=== PATIENT | female | born 2000 | race Caucasian/White ===

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

== ENCOUNTER → 2020-03-24 | Outpatient (REF) | payer OTHER ==
[2020-03-24 18:07] LABS: HEMATOCRIT 41.4 % (36.0-47.0); HEMOGLOBIN 13.6 g/dl (12.0-15.5); MEAN CORPUSCULAR HEMOGLOBIN 29.4 pg (27.0-33.0); MEAN CORPUSCULAR HGB CONC 32.9 g/dl (32.0-36.5); MEAN CORPUSCULAR VOLUME 89.4 fl (80.0-96.0); PLATELET COUNT, AUTOMATED 309 10^3/uL (150-450); RED BLOOD COUNT 4.63 10^6/uL (4.00-5.40); WHITE BLOOD COUNT 6.5 10^3/uL (4.0-10.0)
== END ==
LOC: M PLALAB 15:04
PROVIDERS: ATTEND Advanced Practice Midwife
DX: N92.0 Excessive and frequent menstruation with regular cycle (principal)

== ENCOUNTER → 2020-04-11 | Outpatient (CLI) | payer OTHER ==
--- NOTE | 2020-04-11 16:13 | REP ---
INDICATION: MENORRHAGIA,PELVIC PAIN COMPARISON: None. TECHNIQUE: Transabdominal pelvic ultrasound followed by transvaginal examination for better evaluation of the endometrium and adnexa with color Doppler evaluation of the ovaries. FINDINGS: Bladder is unremarkable and measures 10.9 x 6.3 x 9.3 cm. Normal anteverted uterus measures 8.1 x 3.4 x 4.1 cm. The endometrial complex measures 10 mm thickness. No discrete uterine or endometrial abnormalities are appreciated. 12 x 10 x 9 mm cyst in the right hemipelvis adjacent to the uterine fundus likely adnexal/paraovarian cyst. Bilateral ovaries are normal in vascularity without evidence for torsion. Right ovary measures 4.1 x 2.1 x 2.1 cm with 2.2 cm dominant follicle; R I = 0.65. Left ovary measures 2.9 x 1.6 x 2.9 cm; R I = 0.50. Small amount of pelvic free fluid is nonspecific and likely physiologic. IMPRESSION: Relatively normal examination. Right dominant follicle and suspected right para ovarian cyst. <Electronically signed by Chago Rivera > 04/11/20 [id number]
== END ==
LOC: M WHC 14:56
PROVIDERS: ATTEND Advanced Practice Midwife
DX: N92.0 Excessive and frequent menstruation with regular cycle (principal); N83.291 Other ovarian cyst, right side

== ENCOUNTER → 2020-08-04 | Outpatient (CLI) | payer OTHER ==
[~2020-08-04] MED LIST changes: -GASTROGRAFIN SOLUTION 30ML (Q9963) As Ordered ONE; -ISOVUE-370 76% 100ML VIAL (Q9967) As Ordered ONE; +MELA10CA PO; +MISO200T56; +PRAZ1CAP PO; +ZOLO100T PO
== END ==
LOC: M LABSMTC 10:36
PROVIDERS: ATTEND Anesthesiology
DX: Z01.812 Encounter for preprocedural laboratory examination (principal); Z20.822 Contact with and (suspected) exposure to COVID-19

== ENCOUNTER 2020-08-09 11:58 | Day surgery (SDC) | payer OTHER ==
[~2020-08-09] VITALS: Ht 157.5 cm; Wt 79.8 kg
[~2020-08-09 11:58] MED LIST changes: +LR 1,000 ML IV ONE
[2020-08-09 12:41] LABS: HEMATOCRIT 41.9 % (36.0-47.0); HEMOGLOBIN 13.8 g/dl (12.0-15.5); MEAN CORPUSCULAR HEMOGLOBIN 29.9 pg (27.0-33.0); MEAN CORPUSCULAR HGB CONC 32.9 g/dl (32.0-36.5); MEAN CORPUSCULAR VOLUME 90.7 fl (80.0-96.0); PLATELET COUNT, AUTOMATED 302 10^3/uL (150-450); RED BLOOD COUNT 4.62 10^6/uL (4.00-5.40); WHITE BLOOD COUNT 9.1 10^3/uL (4.0-10.0)
[2020-08-09] MEDS ORDERED: BUPIVACAINE HCL 0.25% 30ML VIAL As Ordered ONE (13:10)
[2020-08-09] MEDS ORDERED: dexameTHASONE 4 MG/ML 1ML VIAL (J1100 PER 1MG) As Ordered ONE (13:54)
[2020-08-09] MEDS ORDERED: ROCURONIUM BROMIDE 50 MG/5 ML VIAL As Ordered ONE (13:54)
[2020-08-09] MEDS ORDERED: propofoL 200 MG/20 ML VIAL As Ordered ONE (13:54)
[2020-08-09] MEDS ORDERED: SUGAMMADEX SODIUM 500 MG/5 ML VIAL (BRIDION) As Ordered ONE (13:54)
[2020-08-09] MEDS ORDERED: fentaNYL 250 MCG/5 ML INJECTION (J3010) As Ordered ONE (13:54)
[2020-08-09] MEDS ORDERED: ONDANSETRON 4MG/2ML VIAL As Ordered ONE (13:54)
[2020-08-09] MEDS ORDERED: LIDOCAINE 2% 100MG/5ML SDV (FOR ANES.) As Ordered ONE (13:54)
[2020-08-09] MEDS ORDERED: MIDAZOLAM INJ 2MG/2ML VIAL (J2250 PER 1MG) As Ordered ONE (13:55)
[2020-08-09] MEDS ORDERED: KETOROLAC 60MG 2ML VIAL As Ordered ONE (14:03)
[2020-08-09] MEDS ORDERED: ePHEDrine SULFATE 25 MG/5 ML(5MG/ML) SYRINGE As Ordered ONE (15:13)
[2020-08-09] MEDS ORDERED: ACETAMINOPHEN 1000MG 100ML IV BTL (OFIRMEV) (J0131 PER 10MG) As Ordered ONE (15:17)
[2020-08-09] MEDS ORDERED: HYDROmorphone HCL 2 MG/ML 1ML VIAL (J1170) As Ordered ONE (15:22)
[2020-08-09] MEDS ORDERED: fentaNYL 100 MCG/2 ML INJECTION (J3010) IV PRN (16:05)
[2020-08-09] MEDS ORDERED: MEPERIDINE INJ 25 MG/ML VIAL (J2175) IV PRN (16:05)
[2020-08-09] MEDS ORDERED: LR 1,000 ML IV SCH ×2 (16:05→16:10)
[2020-08-09] MEDS ORDERED: METOCLOPRAMIDE INJ 10MG/2ML VIAL (J2765 PER 1) IV PRN (16:05)
[2020-08-09] MEDS ORDERED: ONDANSETRON 4MG/2ML VIAL IV PRN (16:05)
[2020-08-09] MEDS ORDERED: oxyCODONE 5MG TAB PO PRN (16:05)
[2020-08-09] MEDS ORDERED: PERCOCET 5MG/325MG TAB PO PRN (16:10)
--- NOTE | 2020-08-09 16:33 | ROOPDOC ---
[facility] Report Of Operation Report of Operation DATE OF PROCEDURE: 08/09/20 PREPROCEDURE DIAGNOSES: pelvic pain, dysmenorrhea. POSTPROCEDURE DIAGNOSES: same. PROCEDURE PERFORMED: Operative laparoscopy, excision of right paratubal cyst. SURGEON: Kareen Rowe MD ANESTHESIA: GETA. ESTIMATED BLOOD LOSS: Approximately 10 mL. COMPLICATIONS: none. FINDINGS: 2 cm right paratubal cyst near the fimbriated portion of the fallopian tube. Normal uterus ovaries and left fallopian tube. No evidence of endometriosis SPECIMENS REMOVED: Right paratubal cyst PROCEDURE NOTE: The patient was taken to the operating room where general endotracheal anesthesia was induced. She was prepped and draped in a sterile fashion in the dorsal lithotomy position. A Rios catheter was placed. A Ocutec tenaculum was used as a uterine manipulator. A periumbilical incision was made with a scalpel. A Veress needle was placed through this incisional tenting up on the skin of the abdomen. An intra-abdominal location of the Veress needle was assessed with the use of a saline filled syringe. A pneumoperitoneum was created. A Veress needle was removed. A 5 mm trocar using LookAcrossort was inserted through this incision. Two 5 mm suprapubic ports were placed under direct visualization without difficulty. The right fallopian tube was elevated with a grasping instrument. A harmonic scalpel was used to coagulate in size attachments of the paratubal cyst to the fallopian tube. The cyst was removed in its entirety. The fallopian tube appeared normal at the end of the procedure. The cyst was decompressed and removed through the suprapubic port. The pelvis was thoroughly surveyed. There was no evidence of endometriosis at all. The pneumoperitoneum was released. All instruments were removed. Skin was closed with 4-0 Monocryl subcuticular sutures. Sponge instrument and needle counts were correct. Patient went to the recovery room in stable condition. KAREEN ROWE MD Aug 09, 2020 16:33
[2020-08-09] MEDS ORDERED: OXYC1TAB23 PO (17:17)
[2020-08-09] MEDS ORDERED: IBUP-1022 PO (17:18)
[2020-08-09 17:20] VITALS: BP 131/67
== END 2020-08-09 17:25 | disposition home or self-care (01) ==
LOC: M SDC 11:58
PROVIDERS: ATTEND Specialist
DX: N83.8 Other noninflammatory disorders of ovary, fallopian tube and broad ligament (principal); N94.6 Dysmenorrhea, unspecified; F41.9 Anxiety disorder, unspecified; F32.9 Major depressive disorder, single episode, unspecified; G43.909 Migraine, unspecified, not intractable, without status migrainosus; F43.10 Post-traumatic stress disorder, unspecified; R56.9 Unspecified convulsions; F17.220 Nicotine dependence, chewing tobacco, uncomplicated; Z79.899 Other long term (current) drug therapy; E73.9 Lactose intolerance, unspecified
CPT/HCPCS: 36415; 58662; 81025; 85027; 88305; J0131; J1100; J1170; J1885; J2250; J2405; J3010

== ENCOUNTER → 2021-10-24 | Outpatient (CLI) | payer OTHER ==
[~2021-10-24] MED LIST changes: +IBUP-1022 PO; -LR 1,000 ML IV ONE; +OXYC1TAB23 PO
[2021-10-24 19:00] LABS: ALBUMIN 3.7 GM/DL (3.2-5.2); ALT/SGPT 18 U/L (12-78); BILIRUBIN,TOTAL 0.3 MG/DL (0.2-1.0); BLOOD UREA NITROGEN 10 MG/DL (7-18); CALCIUM LEVEL 8.9 MG/DL (8.5-10.1); CARBON DIOXIDE LEVEL 28 MEQ/L (21-32); CHLORIDE LEVEL 105 MEQ/L (98-107); CREATININE FOR GFR 0.74 MG/DL (0.55-1.30); GLOMERULAR FILTRATION RATE > 60.0 (>60); GLUCOSE, FASTING 73 MG/DL (70-100); POTASSIUM SERUM 4.3 MEQ/L (3.5-5.1); SODIUM LEVEL 136 MEQ/L (136-145); TOTAL PROTEIN 7.5 GM/DL (6.4-8.2)
== END ==
LOC: M PLAIMG 15:53
PROVIDERS: ATTEND Nurse Practitioner Adult Health
DX: M79.671 Pain in right foot (principal); F32.9 Major depressive disorder, single episode, unspecified

== ENCOUNTER 2021-12-14 11:18 | Emergency (ER) | payer OTHER ==
[~2021-12-14] VITALS: Ht 154.9 cm; Wt 73.3 kg
[2021-12-14] MEDS ORDERED: OMEP40CA5 (11:36)
[2021-12-14] MEDS ORDERED: BUPR150T12 (11:36)
[2021-12-14 12:46] LABS: BASO % 0.4 % (0.0-1.0); EOS # 0.3 10^3/uL (0.0-0.5); EOS % 4.7 % (0.0-3.0); HEMATOCRIT 42.1 % (36.0-47.0); HEMOGLOBIN 13.9 g/dl (12.0-15.5); LYMPH # 1.8 10^3/uL (1.5-5.0); LYMPH % 26.3 % (24.0-44.0); MEAN CORPUSCULAR HEMOGLOBIN 30.3 pg (27.0-33.0); MEAN CORPUSCULAR VOLUME 91.9 fl (80.0-96.0); MONO # 0.5 10^3/uL (0.0-0.8); MONO % 6.6 % (2.0-8.0); NEUTROPHILS # 4.2 10^3/uL (1.5-8.5); NEUTROPHILS % 61.7 % (36.0-66.0); PLATELET COUNT, AUTOMATED 235 10^3/uL (150-450); RED BLOOD COUNT 4.58 10^6/uL (4.00-5.40); WHITE BLOOD COUNT 6.8 10^3/uL (4.0-10.0)
[2021-12-14 13:32] LABS: ACETONE/KETONE 1.57 MG/DL (<2.81); ALBUMIN 3.7 GM/DL (3.2-5.2); ALT/SGPT 22 U/L (12-78); BILIRUBIN,DIRECT < 0.1 MG/DL (0.0-0.2); BILIRUBIN,TOTAL 0.2 MG/DL (0.2-1.0); BLOOD UREA NITROGEN 13 MG/DL (7-18); CALCIUM LEVEL 8.7 MG/DL (8.5-10.1); CARBON DIOXIDE LEVEL 26 MEQ/L (21-32); CHLORIDE LEVEL 106 MEQ/L (98-107); CREATININE FOR GFR 0.69 MG/DL (0.55-1.30); GLOMERULAR FILTRATION RATE > 60.0 (>60); GLUCOSE, FASTING 87 MG/DL (70-100); LIPASE 109 U/L (73-393); POTASSIUM SERUM 3.9 MEQ/L (3.5-5.1); SODIUM LEVEL 140 MEQ/L (136-145); TOTAL PROTEIN 7.3 GM/DL (6.4-8.2)
[2021-12-14 13:40] LABS: OSMOLALITY SERUM 284 MOSM/KG (275-295)
[2021-12-14] MEDS ORDERED: NS 1,000 ML IV SCH (16:30)
[2021-12-14 16:38] LABS: HEMOGLOBIN A1c 4.8 %
[2021-12-14 16:58] LABS: FREE T4 2.58 NG/DL (0.76-1.46); THYROID STIMULATING HORMONE 0.861 uIU/ML (0.358-3.740)
[2021-12-14] MEDS ORDERED: ISOVUE-370 76% 100ML VIAL As Ordered ONE (17:29)
[2021-12-14] MEDS ORDERED: DEXTROSE 50% 50 ML SYRINGE IV STA (17:58)
[2021-12-14 19:13] VITALS: BP 119/77
== END 2021-12-14 19:15 | disposition home or self-care (01) ==
LOC: M ED 11:18
DX: E16.2 Hypoglycemia, unspecified (principal); K76.89 Other specified diseases of liver; R91.8 Other nonspecific abnormal finding of lung field; F32.A Depression, unspecified; F41.9 Anxiety disorder, unspecified; Z79.899 Other long term (current) drug therapy

== ENCOUNTER → 2023-05-14 | Outpatient (REF) | payer OTHER ==
[~2023-05-14] MED LIST changes: +BUPR150T12; -MISO200T56; +MISO200T83; +OMEP40CA5
[2023-05-14 18:24] LABS: THYROID STIMULATING HORMONE 0.626 uIU/ML (0.55-4.78)
[2023-05-14 18:26] LABS: ALKALINE PHOSPHATASE 67 U/L (46-116); ALT/SGPT 24 U/L (7.0-40); AST/SGOT 20 U/L (<34); BILIRUBIN,TOTAL 0.3 MG/DL (0.3-1.2); BLOOD UREA NITROGEN 14 MG/DL (9-23); CALCIUM LEVEL 8.6 MG/DL (8.5-10.1); CARBON DIOXIDE LEVEL 28 MMOL/L (20-31); CHLORIDE LEVEL 104 MMOL/L (98-107); CREATININE FOR GFR 0.66 MG/DL (0.55-1.30); GLOMERULAR FILTRATION RATE > 60.0 (>60); GLUCOSE, FASTING 90 MG/DL (60-100); POTASSIUM SERUM 3.8 MMOL/L (3.5-5.1); SODIUM LEVEL 138 MMOL/L (136-145); TOTAL PROTEIN 7.2 G/DL (5.7-8.2)
== END ==
LOC: M SFHCPLAZ 17:15
PROVIDERS: ATTEND Nurse Practitioner Adult Health
DX: F32.9 Major depressive disorder, single episode, unspecified (principal); K76.9 Liver disease, unspecified

== ENCOUNTER → 2023-06-06 | Outpatient (CLI) | payer OTHER ==
[~2023-06-06] MED LIST changes: +PROHANCE 279.3MG/ML 15ML VIAL As Ordered ONE
== END ==
LOC: M RAD 14:43
PROVIDERS: ATTEND Nurse Practitioner Adult Health
DX: K76.9 Liver disease, unspecified (principal); N28.1 Cyst of kidney, acquired
CPT/HCPCS: 74183; A9576

== ENCOUNTER 2023-07-25 10:25 | Day surgery (SDC) | payer OTHER ==
[~2023-07-25] VITALS: Ht 157.5 cm; Wt 83.9 kg
[~2023-07-25 10:25] MED LIST changes: -BUPR150T12; +BUPR150T12 PO; +CETI-24 PO; +LIDOCAINE 2% 100MG/5ML SDV (FOR ANES.) As Ordered ONE; +MIDAZOLAM INJ 2MG/2ML VIAL As Ordered ONE; +MULTTAB61 PO; -OMEP40CA5; +OMEP40CA5 PO; -PROHANCE 279.3MG/ML 15ML VIAL As Ordered ONE; +ROCURONIUM BROMIDE 50MG/5ML VIAL As Ordered ONE; +propofoL 200 MG/20 ML VIAL As Ordered ONE
[2023-07-25] MEDS ORDERED: KETOROLAC 60MG 2ML VIAL As Ordered ONE (11:54)
[2023-07-25] MEDS ORDERED: fentaNYL 100 MCG/2 ML INJECTION As Ordered ONE (11:59)
[2023-07-25] MEDS: AMPICILLIN SOD/SULBACTAM SOD 3 GM in D5W MINI-BAG PLUS 100 ML IV ONE (12:48)
[2023-07-25] MEDS: LIDOCAINE 2% W/ EPINEPHRINE 1.7 ML DENTAL INJ As Ordered ONE (12:51)
[2023-07-25] MEDS ORDERED: ONDANSETRON 4MG 2ML VIAL As Ordered ONE (12:58)
[2023-07-25] MEDS ORDERED: ACETAMINOPHEN 1000MG 100ML IV BAG As Ordered ONE (12:58)
[2023-07-25] MEDS ORDERED: SUGAMMADEX SODIUM 500 MG/5 ML VIAL (BRIDION) As Ordered ONE (13:00)
[2023-07-25] MEDS ORDERED: LR 1,000 ML IV SCH (13:50)
[2023-07-25] MEDS ORDERED: fentaNYL 100 MCG/2 ML INJECTION IV PRN (13:50)
[2023-07-25] MEDS ORDERED: ONDANSETRON 4MG 2ML VIAL IV PRN (13:50)
[2023-07-25] MEDS: oxyCODONE 5MG TAB PO PRN (14:08)
[2023-07-25 14:35] VITALS: BP 133/77; TEMP 97.1; O2SAT 98
== END 2023-07-25 14:41 | disposition home or self-care (01) ==
LOC: M SDC 10:25
PROVIDERS: ATTEND Dentist
DX: K02.9 Dental caries, unspecified (principal); F40.232 Fear of other medical care; Z91.048 Other nonmedicinal substance allergy status; Z79.899 Other long term (current) drug therapy
CPT/HCPCS: 81025; 88300; D7210; D9223; J0131; J0295; J1100; J1885; J2250; J2405; J3010

== ENCOUNTER → 2024-01-15 | Outpatient (CLI) | payer OTHER ==
[~2024-01-15] MED LIST changes: -LIDOCAINE 2% 100MG/5ML SDV (FOR ANES.) As Ordered ONE; -MIDAZOLAM INJ 2MG/2ML VIAL As Ordered ONE; -ROCURONIUM BROMIDE 50MG/5ML VIAL As Ordered ONE; -propofoL 200 MG/20 ML VIAL As Ordered ONE
[2024-01-15 13:05] LABS: HEMATOCRIT 41.8 % (36.0-47.0); HEMOGLOBIN 14.2 g/dl (12.0-15.5); MEAN CORPUSCULAR HEMOGLOBIN 31.1 pg (27.0-33.0); MEAN CORPUSCULAR VOLUME 91.5 fl (80.0-96.0); PLATELET COUNT, AUTOMATED 306 10^3/uL (150-450); RED BLOOD COUNT 4.57 10^6/uL (4.00-5.40); WHITE BLOOD COUNT 6.9 10^3/uL (4.0-10.0)
[2024-01-15 13:27] LABS: ALBUMIN 3.7 G/DL (3.2-5.2); ALKALINE PHOSPHATASE 62 U/L (35-104); ALT/SGPT 21 U/L (7.0-40); AST/SGOT 21 U/L (<34); BILIRUBIN,TOTAL 0.5 MG/DL (0.3-1.2); BLOOD UREA NITROGEN 12 MG/DL (9-23); CALCIUM LEVEL 9.5 MG/DL (8.5-10.1); CARBON DIOXIDE LEVEL 27 MMOL/L (20-31); CHLORIDE LEVEL 105 MMOL/L (98-107); CREATININE FOR GFR 0.76 MG/DL (0.55-1.30); GLOMERULAR FILTRATION RATE > 60.0 (>60); GLUCOSE, FASTING 80 MG/DL (60-100); POTASSIUM SERUM 4.4 MMOL/L (3.5-5.1); SODIUM LEVEL 140 MMOL/L (136-145); TOTAL PROTEIN 7.4 G/DL (5.7-8.2)
[2024-01-15 13:31] LABS: THYROID STIMULATING HORMONE 0.743 uIU/ML (0.55-4.78)
[2024-01-15 13:32] LABS: FERRITIN 51.5 NG/ML (7.3-270.7); FREE T4 1.11 NG/DL (0.89-1.76)
[2024-01-15 13:46] LABS: HEMOGLOBIN A1c 4.8 % (4.0-6.0)
== END ==
LOC: M PLALAB 11:11
PROVIDERS: ATTEND Nurse Practitioner Adult Health
DX: Z00.00 Encounter for general adult medical examination without abnormal findings (principal); K76.9 Liver disease, unspecified; Z68.30 Body mass index [BMI] 30.0-30.9, adult